=== PATIENT | male | born 1960 | race Caucasian/White ===

== ENCOUNTER 2016-12-09 15:28 | Day surgery (SDC) | payer BC ==
[~2016-12-09] VITALS: Ht 165.1 cm; Wt 87.7 kg
[2016-12-09 15:49] VITALS: Ht 165.1 cm; Wt 87.7 kg
[2016-12-09] MEDS ORDERED: BENA20TA48 PO (15:55)
[2016-12-09] MEDS ORDERED: PROPOFOL 20 ML ONE (17:21)
[2016-12-09] MEDS ORDERED: LIDOCAINE 2% (SDV) 5 ML INJ ONE (17:21)
[2016-12-09 17:26] VITALS: BP 137/80; PULSE 87; RESP 14
[2016-12-09 18:15] VITALS: BP 135/87; PULSE 62; RESP 14
--- NOTE | 2016-12-10 05:43 | GILP ---
DATE OF PROCEDURE: 12/09/2016 PROCEDURE PERFORMED: Colonoscopy and biopsy. PREOPERATIVE DIAGNOSIS: Screening colonoscopy. POSTOPERATIVE DIAGNOSES: 1. Colonoscopy all the way to the cecum. 2. Small sigmoid colon polyp was removed using the biopsy forceps. 3. Internal hemorrhoids. INDICATION: The patient is a 56-year-old male, patient was scheduled for screening colonoscopy. The procedure and possible complications were well explained to the patient. The patient understood and consented to the procedure. DESCRIPTION OF PROCEDURE: Under the influence of anesthesia, the colonoscope was carefully introduced in the rectum. Under direct vision it was advanced all the way to the cecum. FINDINGS: The patient had a small sigmoid colon polyp and it was removed using the biopsy forceps. He had internal hemorrhoids. He tolerated the procedure very well. There was no complication from the procedure. At the end of procedure he was awake with stable vital signs and he was discharged home in the care of his family. IMPRESSION: Please see postop diagnoses. PLAN: Next screening colonoscopy in 10 years. Dictated By: MD KHLOE Cotton/isac/[email or web address] /Document#: [id number]
== END 2016-12-09 19:30 | disposition home or self-care (01) ==
LOC: GIL 15:28
PROVIDERS: ATTEND Internal Medicine Gastroenterology
DX: Z12.11 Encounter for screening for malignant neoplasm of colon (principal); K63.5 Polyp of colon; K64.8 Other hemorrhoids; G47.33 Obstructive sleep apnea (adult) (pediatric); I10 Essential (primary) hypertension
CPT/HCPCS: 88305